=== PATIENT | male | born 1995 | race Caucasian/White ===

== ENCOUNTER → 2017-03-25 | Outpatient (CLI) | payer BC ==
[2017-03-25 09:29] LABS: BASO % 0.3 %; BASO ABS # 0.02 K/uL (0-0.2); COMPLETE YES; EOS % 0.7 %; HEMATOCRIT 41.1 % (42-52); IG% 0.3 %; LYMPH % 26.9 %; LYMPH ABS # 1.98 K/uL (1.2-3.4); MEAN CELL VOLUME 81.5 fL (80-100); MEAN CORPUSCULAR HGB CONC 33.1 g/dl (32-36); MEAN PLATELET VOLUME 10.2 fL (7.4-10.4); MONO % 5.2 %; NEUT % 66.6 %; PLATELET COUNT 258 K/uL (130-400); RED BLOOD COUNT 5.04 M/uL (4.7-6.1); WHITE BLOOD COUNT 7.37 K/uL (4.8-10.8)
[2017-03-25 10:22] LABS: ALT/SGPT 23 U/L (12-78); AST/SGOT 15 U/L (15-37); BLOOD UREA NITROGEN 14 mg/dl (7-18); BUN/CREATININE RATIO 16.2 (10-20); CALCIUM 9.1 mg/dl (8.5-10.1); CARBON DIOXIDE 28 mmol/L (21-32); CHLORIDE 106 mmol/L (98-107); CREATININE 0.86 mg/dl (0.60-1.40); GLUCOSE 79 mg/dl (70-99); POTASSIUM 3.8 mmol/L (3.5-5.1); SODIUM 141 mmol/L (136-145)
[2017-03-25 10:24] LABS: ALB/GLOB RATIO 0.9 (0.9-2); ALKALINE PHOSPHATASE 108 U/L (45-117); C-REACTIVE PROTEIN 2.72 mg/dl (0-0.29)
[2017-03-27 10:36] LABS: QUANTIF TB AG-NIL <0.00 IU/ML; QUANTIFERON NIL 0.08 IU/ML
== END | disposition home or self-care (01) ==
LOC: C.LAB 08:27
PROVIDERS: ATTEND Registered Nurse
DX: K50.90 Crohn's disease, unspecified, without complications (principal)

== ENCOUNTER → 2017-08-22 | Outpatient (CLI) | payer BC ==
[~2017-08-22] MED LIST: AMOX500C3 PO; B-COTAB18 PO; CHOL20007 PO; CIPR1TAB10 PO; HYDR-5688 PO; LACT1CAP6 PO; METR-163 PO; OPTIRAY 320 IV PRN; PNT500 PO; PRED20TA2 PO; RMCI INJ
--- NOTE | 2017-08-22 07:51 | DIAGNOSTIC IMAGING REPORT ---
ABD/PELVIS IV AND ORAL CONT CLINICAL HISTORY: 21 years-old Male presenting with K50.90 Crohn's [id number] Perirectal xyiwpecY49.89 Perianal pa. TECHNIQUE: Multidetector CT of the abdomen and pelvis was performed after the administration of oral and intravenous contrast. IV contrast: 93 mL of Optiray 320. A dose lowering technique was used consistent with the principles of ALARA (as low as reasonably achievable). COMPARISON: MR from 05/22/2015. CT DOSE (mGy.cm): The estimated cumulative dose is 444.21 mGy.cm. 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 Lung bases: Lungs and pleural spaces clear. Normal heart size. No pericardial or pleural effusion. Liver: Normal morphology. No liver lesion. Patent hepatic vasculature. Biliary: No intrahepatic or extrahepatic biliary ductal dilatation. Normal gallbladder. Pancreas: Normal. Spleen: Normal. Adrenal glands: Normal. Kidneys and ureters: Normal. No hydronephrosis. Bladder: Incompletely evaluated secondary to underdistention. Pelvic organs: Prostate and seminal vesicles normal. Bowel: Fluid noted throughout the colon related to negative oral contrast. Possible mucosal hyperenhancement of the terminal ileum without significant wall thickening or perienteric inflammatory change (series 3 image 263). This is equivocal for active inflammation. Remainder of small bowel normal. Somewhat tortuous descending portion of the duodenum. The appendix is normal. Peritoneal cavity: No free fluid or intraperitoneal gas. Lymph nodes: Mildly prominent mesenteric lymph nodes in the right lower quadrant. Vasculature: Aorta and IVC patent and normal in caliber. Abdominal wall: Normal. Musculoskeletal: Normal. IMPRESSION: 1. Equivocal inflammatory change at the terminal ileum with questionable mucosal hyperenhancement but no separate wall thickening or perienteric fat infiltration. This is not definite for active inflammation. No evidence of fibrostenosing or penetrating disease. 2. Reactive right lower quadrant mesenteric lymph nodes. Electronically signed by: Rich Paul M.D. 08/22/2017 7:49 AM Dictated Date/Time: 08/22/2017 7:42 AM
== END | disposition home or self-care (01) ==
LOC: C.CTS 05:52
PROVIDERS: ATTEND Registered Nurse
DX: K50.90 Crohn's disease, unspecified, without complications (principal); K60.4 Rectal fistula; K62.89 Other specified diseases of anus and rectum; R10.32 Left lower quadrant pain

== ENCOUNTER → 2017-08-29 | Outpatient (CLI) | payer BC ==
[~2017-08-29] MED LIST changes: +GADAVIST IV PRN; -OPTIRAY 320 IV PRN
--- NOTE | 2017-08-29 13:10 | DIAGNOSTIC IMAGING REPORT ---
PELVIS MRI WITH AND WITHOUT INTRAVENOUS CONTRAST HISTORY: CROHN'S DISEASE, PERINEAL PAIN, HX PERIRECTAL fistula. TECHNIQUE: Multiplanar multisequence MRI of the pelvis performed both before and after the intravenous administration of contrast. COMPARISON STUDY: Pelvis CT 08/26/2017. Pelvis MRI 05/22/2015. FINDINGS: Perianal fistula originating at the the 6:00 location best seen on axial T1 postcontrast sequences images 23 and 24. This extends through the external sphincter consistent with a transsphincteric fistula and into the left ischiorectal space. This fistula is fluid-filled and measures up to 8 mm in thickness. No abscess identified at this time. The fistula branches within the subcutaneous fat of the left gluteal region. However, only a single tract extends to the left gluteal crease best seen on coronal image 73 of 96. The fistula measures approximately 7.5 cm in length. No supralevator extension. There is enhancement throughout the wall of the fistula and mild thickening of the left gluteal crease. 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 Electronically signed by: Jose Lopez M.D. 08/29/2017 1:08 PM Dictated Date/Time: 08/29/2017 12:49 PM
== END | disposition home or self-care (01) ==
LOC: C.MRI 11:31
PROVIDERS: ATTEND Registered Nurse
DX: K60.3 Anal fistula (principal); K50.90 Crohn's disease, unspecified, without complications; K62.89 Other specified diseases of anus and rectum

== ENCOUNTER → 2017-09-23 | Outpatient (CLI) | payer BC ==
[~2017-09-23] MED LIST changes: -CIPR1TAB10 PO; -GADAVIST IV PRN; -HYDR-5688 PO; -PNT500 PO
[2017-09-23 15:21] LABS: BASO % 0.1 %; BASO ABS # 0.01 K/uL (0-0.2); EOS % 0.1 %; EOS ABS # 0.01 K/uL (0-0.5); HEMATOCRIT 43.3 % (42-52); IG# 0.06 K/uL (0.00-0.02); LYMPH ABS # 1.24 K/uL (1.2-3.4); MEAN CELL VOLUME 82.3 fL (80-100); MEAN CORPUSCULAR HEMOGLOBIN 28.5 pg (25-34); MEAN CORPUSCULAR HGB CONC 34.6 g/dl (32-36); MEAN PLATELET VOLUME 9.7 fL (7.4-10.4); MONO % 1.8 %; NEUT % 86.5 %; NEUT ABS # 9.78 K/uL (1.4-6.5); PLATELET COUNT 239 K/uL (130-400); RED CELL DISTRIBUTION WIDTH CV 13.7 % (11.5-14.5)
== END | disposition home or self-care (01) ==
LOC: C.LAB 13:30
PROVIDERS: ATTEND Internal Medicine
DX: Z00.01 Encounter for general adult medical examination with abnormal findings (principal); K50.013 Crohn's disease of small intestine with fistula